=== PATIENT | male | born 1970 | race Caucasian/White ===

== ENCOUNTER → 2017-08-22 | Outpatient (CLI) | payer MEDICARE ==
[~2017-08-22] MED LIST: AMLODIPINE10 MG PO; GABAPENTIN300 MG PO; HYDROCHLOROTH12.5 M1 PO; LEVOTHYROXIN0.075 M1 PO; LEVOTHYROXIN0.075 MG PO; LISINOPRIL 10MG10 MG PO; LISINOPRIL20 MG PO; LORTAB 5/500 501 TAB PO; LORTAB 500 MG-11 TAB PO; LYRICA200 MG PO; METOPROLOL25 MG PO; NOMEDS *; SEPTRA DS 800 M1 TAB PO; TOLMETIN SODIU400 MG PO; ZANAFLEX6 MG PO
--- NOTE | 2017-08-22 15:28 | RADIOLOGY REPORT PS360 ---
HAND-RT 3 VIEWS HISTORY: Pain following injury FALL ONTO RT HAND ORDERING PHYSICIAN: Zo Joyner MD PATIENT AGE: 47 years COMPARISON: None FINDINGS: No fracture or dislocation. No lytic or blastic change. There is normal mineralization. The joint spaces are well-preserved. No significant degenerative/arthritic changes. No erosive changes evident. IMPRESSION: Negative, no acute finding
== END ==
LOC: RAD 15:08
DX: M79.641 Pain in right hand (principal)